=== PATIENT | male | born 1995 | race Caucasian/White ===

== ENCOUNTER 2025-01-10 15:36 | Inpatient (IN) | payer MEDICAID, SELFPAY ==
[2025-01-10] VITALS (9 sets, daily range): BP systolic 116–129; BP diastolic 67–92; PULSE 102–120; RESP 15–20; TEMP 36.6–36.7; O2SAT 96–99; BMI 27.2
--- NOTE | 2025-01-10 16:46 | PD.EDRME ---
Rapid Medical Screening Exam RME Arrival date/time: 01/10/25 15:36 29-year-old male type I diabetic with history of DKA presents to the emergency department today for complaints of nausea vomiting abdominal pain Chief Complaint: Nausea/Vomiting/Diarrhea Vital signs: Vital Signs Temperature 98.0 F 01/10/25 15:45 Pulse Rate 113 H 01/10/25 15:45 Respiratory Rate 18 01/10/25 15:45 Blood Pressure 124/80 01/10/25 15:45 Pulse Oximetry (%) 97 01/10/25 15:45 Oxygen Delivery Method Room Air 01/10/25 15:45
[2025-01-10 17:01] LABS: Basophils # (Auto) 0.1 Thou/mm3 (0.0-0.2); Basophils % (Auto) 0 % (0-2.5); Eosinophils # (Auto) 0.1 Thou/mm3 (0.0-0.5); Eosinophils % (Auto) 0 % (0-10); Hematocrit 46.2 % (41.0-53.0); Hemoglobin 16.1 g/dL (13.5-16.0); Immature Granulocytes % (Auto) 1 % (0-0); Immature Granulocytes Auto 0.12 Thou/mm3 (0.00-0.00); Lymphocytes # (Auto) 1.8 Thou/mm3 (1.0-4.8); Lymphocytes % (Auto) 9 % (10-50); Mean Corpuscular HGB Conc 34.8 g/dl (31.0-37.0); Mean Corpuscular Hemoglobin 31.4 pg (25.0-35.0); Mean Corpuscular Volume 90 fL (80-100); Monocytes # (Auto) 1.4 Thou/mm3 (0.0-0.8); Monocytes % (Auto) 7 % (0-12); Neutrophils # (Auto) 16.8 Thou/mm3 (1.8-7.7); Neutrophils % (Auto) 83 % (37-80); Nucleated Red Blood Cell % 0 /100 WBC (0); Platelet Count 330 Thou/mm3 (140-440); RDW Standard Deviation 41.7 fL (35.1-43.9); Red Blood Count 5.12 Miln/mm3 (4.50-5.90); White Blood Count 20.1 Thou/mm3 (3.8-10.6)
[2025-01-10 17:09] LABS: Beta Hydroxybutyrate 5.2 mmol/L (<0.6)
[2025-01-10] MEDS: ONDANSETRON INJ 2 MG/ML INJ 2 ML 4 MG IVP (17:13)
[2025-01-10] MEDS: METOCLOPRAMIDE INJ 5 MG/ML VIAL 2 ML 10 MG IM (17:14)
[2025-01-10 17:18] LABS: Glucose Estimated Average 298 mg/dL (80-131)
[2025-01-10 17:35] LABS: Alanine Aminotransferase < 7 U/L (10-49); Albumin, Serum 5.1 gm/dL (3.5-5.0); Alkaline Phosphatase 73 U/L (46-116); Anion Gap 26 (7-16); Aspartate Amino Transferase 12 U/L (0-34); BUN/Creatinine Ratio 9 Ratio (12-20); Bilirubin,Total 0.8 mg/dL (0.3-1.2); Blood Urea Nitrogen 13 mg/dL (9-23); Chloride 100 mMol/L (98-107); Creatinine (Component) 1.4 mg/dL (0.6-1.3); Estimated Creatinine Clearance 81.8 mL/min (>60); Globulin 2.6 gm/dL (2.3-3.5); Lipase 24 U/L (12-53); Osmolality,Calculated 292 (275-295); Potassium 4.5 mMol/L (3.4-5.1); Sodium 136 mMol/L (136-145); Total Protein 7.7 gm/dL (5.7-8.2); eGFR > 60 See Note
[2025-01-10 17:37] LABS: Carbon Dioxide < 10.0 mMol/L (20.0-31.0); Glucose 459 mg/dL (74-106)
[2025-01-10] MEDS: SODIUM CHLORIDE 0.9% 1000 ML 1,000 ML 999 ML IV ×2 (17:38→18:30)
[2025-01-10 17:42] LABS: Base Excess, Venous -19 (-3-3); O2 Saturation, Venous 98 % (96-97); PCO2, Venous 17 mmHg (36-56); PO2, Venous 102 mmHg (15-58)
--- NOTE | 2025-01-10 17:54 | XR_ITS ---
Examination: AP chest single view Technique one AP portable semiupright chest single view Date and time: January 10, 2025 at 1803 hours INDICATIONS: Nausea vomiting today. FINDINGS: Normal heart size. No aspiration pneumonia. Osseous structures are intact. IMPRESSION: No aspiration pneumonia
--- NOTE | 2025-01-10 18:00 | EDNOTE_ITS ---
Nausea/Vomit./Diarrhea-RME/HPI General Chief complaint: Nausea/Vomiting/Diarrhea Stated complaint: NAUSEA VOMITING Time Seen by Provider: 01/10/25 17:40 Arrival date/time: 01/10/25 15:36 RME / HPI RME / HPI Narrative: 29-year-old male patient with type 1 diabetes mellitus, who was brought in by EMS for evaluation regarding nausea and vomiting. Patient woke up this morning with nausea and vomiting, severity moderate associated with generalized body weakness. Patient also complaining of abdominal cramping. Patient denies any abdominal pain. Patient denies any fever. Patient told me that sometimes he forgets to take his insulin. The last dose of insulin was 2 days ago. Not yesterday and not today. Patient denies any fever. Denies any diarrhea or constipation. Related Data Home Medications ?Medication ?Instructions ?Recorded ?Confirmed insulin lispro 100 unit/mL See Protocol subcut ACHS 01/10/25 subcutaneous half-unit pen (Humalog Adán KwikPen (U-100)) Allergies Allergy/AdvReac Type Severity Reaction Status Date / Time No Known Allergies Allergy Verified 07/16/22 13:53 Review of Systems Review of Systems Narrative Review of Systems: Review of system reviewed and within normal limits except mentioned in HPI ED Exam Narrative Physical exam: VITAL SIGNS: Reviewed. GENERAL APPEARANCE: Alert and interactive, follows commands, no acute distress, generalized body weakness HEAD AND FACE: Non-traumatic. ENT: PERRL, pink conjunctivitis, eyelid no trauma, Mucous membrane dry NECK: Supple, nontender, no nuchal rigidity. CHEST: No tenderness, no crepitus, no paradoxical movement, no retractions. LUNGS: Clear, well ventilated, symmetric, no rales, no wheezing, no ronchi, no stridor, good breath sounds bilaterally. HEART: Regular rate, regular rhythm, no murmur, no gallops. ABDOMEN: Soft, positive bowel sounds, nondistended, no guarding, nontender, no rebound, no masses, RECTAL: Deferred. GENITAL: Deferred. NEUROLOGICAL: Gross motor function intact sensory function intact, Appropriate for age. MUSCULOSKELETAL: low back nontender, full range of motion. EXTREMITIES: Nontender, full range of motion. SKIN: Color pink, dry, no rash, no lacerations, no abrasions, no contusions. LYMPHATICS: Deferred. Course Quality Measures none Orders Category Date Time Status Bedside Blood Glucose Q1H Care 01/10/25 17:54 Active Computer Customer Support Specialist Q4H Care 01/10/25 17:54 Active DKA Protocol QSHIFT Care 01/10/25 17:54 Active Insert IV NOW Care 01/10/25 16:44 Active Intake and Output Q1H Care 01/10/25 18:00 Ordered Intake and Output Q1H Care 01/10/25 19:00 Ordered Intake and Output Q1H Care 01/10/25 20:00 Ordered Intake and Output Q1H Care 01/10/25 21:00 Ordered Intake and Output Q1H Care 01/10/25 22:00 Ordered Intake and Output Q1H Care 01/10/25 23:00 Ordered Notify provider NEEDED Care 01/10/25 17:54 Active Referral Registered Dietitian Routine Cons 01/10/25 17:54 Active XR chest 1V portable Stat Exams 01/10/25 17:54 Completed A1C [Glycohemoglobin w (eAG)] Stat Lab 01/10/25 16:51 Completed Alcohol, Urine Stat Lab 01/10/25 16:44 Ordered Beta Hydroxybutyrate Stat Lab 01/10/25 16:51 Completed Blood Culture (Lab) Routine Lab 01/10/25 16:47 Received CBC Stat Lab 01/10/25 16:51 Completed Comprehensive Metabolic Panel Stat Lab 01/10/25 16:51 Completed Drug Screen,Urine Stat Lab 01/10/25 16:44 Ordered Lipase Stat Lab 01/10/25 16:51 Completed Magnesium Q4H Lab 01/10/25 22:00 Ordered Magnesium Q4H Lab 01/11/25 02:00 Ordered Magnesium Q4H Lab 01/11/25 06:00 Ordered Magnesium Q4H Lab 01/11/25 10:00 Ordered Magnesium Q4H Lab 01/11/25 14:00 Ordered Magnesium Q4H Lab 01/11/25 18:00 Ordered Magnesium Q4H Lab 01/11/25 22:00 Ordered Magnesium Q4H Lab 01/12/25 02:00 Ordered Magnesium Q4H Lab 01/12/25 06:00 Ordered Magnesium Q4H Lab 01/12/25 10:00 Ordered Magnesium Q4H Lab 01/12/25 14:00 Ordered Magnesium Q4H Lab 01/12/25 18:00 Ordered Renal Function Panel Q4H Lab 01/10/25 22:00 Ordered Renal Function Panel Q4 Lab 01/11/25 02:00 Ordered Renal Function Panel Q4 Lab 01/11/25 06:00 Ordered Renal Function Panel Q4 Lab 01/11/25 10:00 Ordered Renal Function Panel Q4 Lab 01/11/25 14:00 Ordered Renal Function Panel Q4 Lab 01/11/25 18:00 Ordered Renal Function Panel Q4 Lab 01/11/25 22:00 Ordered Renal Function Panel Q4 Lab 01/12/25 02:00 Ordered Renal Function Panel Q4 Lab 01/12/25 06:00 Ordered Renal Function Panel Q4 Lab 01/12/25 10:00 Ordered Renal Function Panel Q4 Lab 01/12/25 14:00 Ordered Renal Function Panel Q4 Lab 01/12/25 18:00 Ordered UA, C/S IF [Urinalysis, C/S if Indicated] Stat Lab 01/10/25 16:44 Ordered VBG [Venous Blood Gas] Stat Lab 01/10/25 16:51 Completed Dextrose 5%-Lactated Ringers [D5-Lr] 1,000 ml Med 01/10/25 17:52 Active Pot Chl Additive [KCl Additive] 40 meq IV 250 mls/hr Dextrose 5%-Lactated Ringers [D5-Lr] 1,000 ml Med 01/10/25 17:52 Active IV 250 mls/hr Dextrose 50% Syr [D50w Syringe Abboject] Med 01/10/25 17:52 Active 25 ml IV PRNMRX1 PRN Insulin Reg 100 Units/100 ml [Myxredlin] Med 01/10/25 17:52 Active 100 unit in 100 ml IV 0.1 unit/kg/hr KCL 20 mEq/L in D5-LR Med 01/10/25 17:52 Active 20 meq in 1,000 ml IV 250 mls/hr Magnesium Sulfate 2 GM Ivpb [Magnesium Sulfate Ivpb] Med 01/10/25 17:52 Active 2 gm in 50 ml IV 25 mls/hr Metoclopramide Inj [Reglan Inj] Med 01/10/25 16:53 Discontinued 10 mg IM X1 ONE Ondansetron Inj [Zofran Inj] Med 01/10/25 16:44 Discontinued 4 mg IVP X1 ONE POT PHOS 15 mMol in NS 250 ML [Pot Phos 15 mMol in NS Med 01/10/25 17:52 Active 250 ml] 15 mmol in 250 ml IV PRN POTASSIUM CHL 10 mEq IVPB [Kcl Ivpb] [facility] 01/10/25 17:52 Active 10 meq in 100 ml IV 100 mls/hr POTASSIUM CHL 10 mEq IVPB [Kcl Ivpb] Med 01/10/25 17:52 Active 10 meq in 100 ml IV PRN Pre-Mixed [Pre-mixed Bag] 1 bag [facility] 01/10/25 17:52 Discontinued Insulin Reg 100 Units/100 ml [Myxredlin] 100 unit IV 0.1 unit/kg/hr Ringers Lactated 1000 ml [Lactated Ringers] 1,000 ml Med 01/10/25 17:52 Active Pot Chl Additive [KCl Additive] 20 meq IV 250 mls/hr Ringers Lactated 1000 ml [Lactated Ringers] 1,000 ml [facility] 01/10/25 17:52 Active Pot Chl Additive [KCl Additive] 40 meq IV 250 mls/hr Ringers Lactated 1000 ml [Lactated Ringers] 1,000 ml [facility] 01/10/25 17:52 Active IV 250 mls/hr Sodium Bicarb 8.4% SYR Med 01/10/25 17:52 Active 50 ml IV Q4HR PRN Sodium Chloride 0.9% 1000 ml [Ns] 1,000 ml [facility] 01/10/25 16:44 Discontinued IV 999 mls/hr Sodium Chloride 0.9% 1000 ml [Ns] 1,000 ml Med 01/10/25 17:50 Discontinued IV 999 mls/hr Sodium Chloride 0.9% 250 ml [Ns] 250 ml [facility] 01/10/25 17:52 Active Sod Phos Additive [NaPhos Additive] 15 mmol IV 62.5 mls/hr Vital Signs Vital signs: Vital Signs Temperature 98.0 F 01/10/25 15:45 Pulse Rate 113 H 01/10/25 15:45 Respiratory Rate 18 01/10/25 15:45 Blood Pressure 124/80 01/10/25 15:45 Pulse Oximetry (%) 97 01/10/25 15:45 Oxygen Delivery Method Room Air 01/10/25 15:45 Nausea/Vomiting/Diarrhea MDM Narrative MDM Narrative:: Patient told me that sometimes he forgets to take his insulin. The last dose of insulin was 2 days ago. Not yesterday and not today. Patient denies any fever. Denies any diarrhea or constipation. Patient's WBC count was noted to be 20.1. pH was noted to be 7.2, carbon dioxide of less than 10 anion gap of 26 creatinine 1.4 blood sugar 459, sodium 136 potassium 4.5. Beta hydroxy was noted to be 5.2 Patient received total 2 L IV fluids. And started on insulin drip Spoke with hat brim curler, Dr. Allison, who admitted the patient. Patient data External records reviewed:: None Clinical information provided by:: patient Social determinants that could affect healthcare access:: none Patient has the following chronic illnesses:: Type 1 diabetes mellitus How is presenting disease/condition affected by chronic disease/condition?: exacerbated by Evaluation data The following diagnostics were reviewed and interpreted by me:: lab results and radiology exam(s) Lab and/or radiology exams considered but not ordered:: None Interpretation Summary: See results MDM Medications / Prescriptions Medications / Prescriptions considered but not ordered:: None Medication administrations:: Medication Administration History Acetaminophen (Acetaminophen 325 Mg Tablet) 1,000 mg PO Q6H PRN PRN Reason: Fever >99.9 Stop: 02/09/25 18:06 Dextrose (Dextrose 50%-Water Inj 50 Ml Syringe) 25 ml IV PRNMRX1 PRN PRN Reason: Blood Sugar - Low Enoxaparin Sodium (Enoxaparin Sod Inj 40 Mg/0.4 Ml Syringe) 40 mg SC QDAY JADA Stop: 01/25/25 08:59 Glucagon (Glucagon Inj 1 Mg Vial) 1 mg IM Q15MIN PRN PRN Reason: BG <70, and no IV access Insulin Human Regular (Myxredlin) 100 unit in 100 mls @ 8.618 mls/hr IV .[id number] PRN; Protocol PRN Reason: PER PROTOCOL Stop: 02/09/25 17:51 Last Titration: 01/10/25 20:00 Dose: 0.1 unit/kg/hr, 8.618 mls/hr Documented By: AD Co-signed By: MACHO Admin: 01/10/25 18:30 Dose: 0.1 unit/kg/hr, 8.618 mls/hr Documented By: TM Co-signed By: ED Potassium Chloride (Kcl Ivpb) 10 meq in 100 mls @ 100 mls/hr IV .Q1H PRN PRN Reason: IF POTASSIUM LESS THAN 3.3 Stop: 02/09/25 17:51 Magnesium Sulfate (Magnesium Sulfate Ivpb) 2 gm in 50 mls @ 25 mls/hr IV .Q2H PRN PRN Reason: PER DKA PROTOCOL Stop: 02/09/25 17:51 Dextrose/Lactated Ringer's (D5-Lr) 1,000 mls @ 250 mls/hr IV .Q4H PRN PRN Reason: PER PROTOCOL Stop: 02/09/25 17:51 Lactated Ringer's (Lactated Ringers) 1,000 mls @ 250 mls/hr IV .Q4H PRN PRN Reason: PER PROTOCOL Stop: 01/11/25 17:51 Potassium Chloride 20 meq/ (Lactated Ringer's) 1,010 mls @ 250 mls/hr IV .Q4H3M PRN PRN Reason: K LEVEL 3.3 TO 5.3mM/L Stop: 02/09/25 17:51 Last Admin: 01/10/25 19:06 Dose: 250 mls/hr Documented By: TM Potassium Chloride 40 meq/ (Lactated Ringer's) 1,020 mls @ 250 mls/hr IV .Q4H5M PRN PRN Reason: K LEVEL < 3.3 mM/L Stop: 02/09/25 17:51 Potassium Chloride 40 meq/ (Dextrose/Lactated Ringer's) 1,020 mls @ 250 mls/hr IV .Q4H5M PRN PRN Reason: K LEVEL < 3.3mM/L Stop: 02/09/25 17:51 Potassium Cl/Dextrose/Lact Ringer's (Kcl 20 Meq/L In D5-Lr) 20 meq in 1,000 mls @ 250 mls/hr IV .Q4H PRN PRN Reason: K LEVEL 3.3 TO 5.3 mM/L Stop: 02/09/25 17:51 Potassium Chloride (Kcl Ivpb) 10 meq in 100 mls @ 50 mls/hr IV PRN PRN PRN Reason: K LEVEL 3.3 to 5.3 & BG > 200 Stop: 02/09/25 17:51 Potassium Phosphate (Pot Phos 15 Mmol In Ns 250 Ml) 15 mmol in 250 mls @ 62.5 mls/hr IV PRN PRN PRN Reason: Phosphate <= 1mg/dL Stop: 02/09/25 17:51 Sodium Phosphate 15 mmol/ (Sodium Chloride) 255 mls @ 62.5 mls/hr IV .Q4H5M PRN PRN Reason: Phosphate <= 1mg/dL and K> than 5.3 Stop: 02/09/25 17:51 Ondansetron HCl (Ondansetron Inj 2 Mg/Ml Inj 2 Ml) 4 mg IVP Q6H PRN; Protocol PRN Reason: NAUSEA OR VOMITING Stop: 02/09/25 18:06 Pantoprazole Sodium (Pantoprazole Inj 40 Mg Vial) 40 mg IVP QDAY JADA Stop: 02/10/25 08:59 Sodium Bicarbonate (Sodium Bicarb Inj 8.4% Syr 50 Ml Syringe) 50 ml IV Q4HR PRN PRN Reason: For ph <= to 7.0 Stop: 02/09/25 17:51 Discontinued Medications Acetaminophen (Acetaminophen 325 Mg Tablet) 1,000 mg PO Q6H PRN PRN Reason: Fever >99.9 Stop: 02/09/25 18:06 Sodium Chloride (Ns) 1,000 mls @ 999 mls/hr IV .Q1H1M ONE Stop: 01/10/25 17:44 Last Admin: 01/10/25 17:38 Dose: 999 mls/hr Documented By: KATHLEEN Sodium Chloride (Ns) 1,000 mls @ 999 mls/hr IV .Q1H1M ONE Stop: 01/10/25 18:50 Last Admin: 01/10/25 18:30 Dose: 999 mls/hr Documented By: MONICA Insulin Human Regular 100 unit (/ IV Miscellaneous Supplies) 100 mls @ 8.618 mls/hr IV .[id number] PRN; Protocol PRN Reason: PER PROTOCOL Stop: 02/09/25 17:51 Metoclopramide HCl (Metoclopramide Inj 5 Mg/Ml Vial 2 Ml) 10 mg IM X1 ONE; Protocol Stop: 01/10/25 16:54 Last Admin: 01/10/25 17:14 Dose: 10 mg Documented By: KATHLEEN Ondansetron HCl (Ondansetron Inj 2 Mg/Ml Inj 2 Ml) 4 mg IVP X1 ONE; Protocol Stop: 01/10/25 16:45 Last Admin: 01/10/25 17:13 Dose: 4 mg Documented By: KATHLEEN IV fluids for hydration insulin drip, Zofran and Reglan Consultations Consultation(s) initiated? (list below): No Diagnosis Nausea Differential Diagnosis: food poisoning, gastroenteritis and dehydration Most likely diagnosis given after review of the tests above:: Diabetic ketoacidosis, Admission Indicated Admission indicated?: indicated Admission Request Was there a request for admission?: Yes Admission Attestation Admission request attestation: Discussed case with [Dr. Allison] from Hospitalist service regarding admission. Discussed patients ED course, exam findings, labs, and radiology results. The Hospitalist [agrees] to accept the patient for admission. Disposition Plan Disposition Plan: Admit Critical Care Time Critical Care Time Critical Care Time: Yes Total Critical Care Time (min.): 45 Attestation: Critical Care Time The very real possibility of a deterioration of this patient's condition required the highest level of my preparedness for sudden, emergent intervention for the following systems: Cardiac and Metabolic. I provided critical care services, which included medication orders, frequent re-evaluations of the patient's condition and response to treatment, ordering and reviewing test resu lts, and discussing the case with various consultants including: nursing staff, hospitalist, and more. The critical care time associated with the care of this patient was 45 minutes. Discharge Plan Plan Patient Disposition: Admit Acute Care w/in Hospital Problem List Clinical Impression: Diabetic ketoacidosis
--- NOTE | 2025-01-10 18:07 | EKG_ITS ---
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
[2025-01-10] MEDS: INSULIN REG 100 UNITS/100 ML 100 UNIT/100 ML BAG 8.618 UNIT IV (18:30)
--- NOTE | 2025-01-10 18:34 | ESHP_ITS ---
Documentation for date of: 01/10/25 HPI History of Present Illness History of present illness: Chief complaint: Nausea, vomiting and abdominal pain x 10 hours HPI: Mr Hernandez is a 29 year old male with PMH of Type 1 IDDM, who was admitted for acute onset nausea, vomiting and abdominal pain that started this morning around 9 am. Patient also had 2-3 episodes of diarrhea. HE has experienced similar symptoms in the past when he was hospitalized 1 year ago in 2023. Patient states that he missed a few of his insulin doses about 24-48 hours ago, states that he was feeling lazy. He states that he is otherwise compliant with his insulin and takes everything as prescribed. He denies any fever, chills, or other systemic signs or symptoms. In the ED, vitals showed borderline tachycardia HR 102-106 bpm, BP 120/80 and saturating 98% on room air. Fingerstick blood glucose noted to be > 400. Initial laboratory workup remarkable for leukocytosis WBC 20, hemoglobin 16.1 due to hemoconcentration, bicarb <10, KEILY Cr 1.4 (baseline 0.8) and BHB 5.2. A1c noted to be 12%. VBG showed pH 7.2, CO2 17. EKG showed sinus tachycardia, HR 106 bpm and chest x-ray unremarkable. Patient was admitted to the ICU for diabetic ketoacidosis in the setting of medication noncompliance. Past medical history: Tyep 1 DM, diagnosed at age 23 Medication list: Long acting insulin - glargine ? Short acting Lispro Sliding scale Allergies: NKFDA Social history: Occupational?History:?Unemployed Tobacco?Use:?Denies ETOH?Use:?Socially Drug?Note:?Marijuana Social?History?Note:?Lives?at home with mother Family history: Denies sudden cardiac or strokes in the family, Denies cancers. Review of Systems Review of Systems Narrative Review of Systems: GENERAL: Denies fevers/chills, some diaphoresis. HEENT: Denies headache or visual/hearing changes. Denies nasal discharge. NEURO: Denies unusual weakness or difficulty speaking. CARDIO: Denies chest pain, palpitations. PULM: Denies SOB, cough, wheezing. GI: Diffuse abdominal pain, N/V, 2 episodes of diarrhea. URO: Denies burning/itching/pain/urinary changes. MSK/EXT/SKIN: Denies skeletal/muscle pain, changes in upper or lower extremities, itchiness, superficial skin chnages. PSYCH: Cooperative, pleasant mood & affect. The rest of the review of systems is otherwise negative. Exam Vital Signs Temp Pulse Resp BP Pulse Ox O2 Del Method 98.0 F 113 H 18 124/80 97 Room Air 01/10/25 15:45 01/10/25 15:45 01/10/25 15:45 01/10/25 15:45 01/10/25 15:45 01/10/25 15:45 Narrative Exam Constitutional Alert, oriented x3. Nauseous HEENT Vision grossly intact. Patent nares. Trachea midline. Respiratory Chest normal on inspection and clear to auscultation bilaterally. Cardiovascular S1 and S2 audible, RRR. No murmurs or carotid bruit. No gross JVD. Abdominal Soft and BS + ; mildly tender to palpation diffusely. Genitourinary No bladder tenderness, no flank pain. Normal to palpation. Musculoskeletal Extremities tone within normal limits. No LE edema. Neurological CN II - XII grossly intact. Extremity motor and sensation grossly intact. Skin Warm, dry and intact. No apparent lesions. Psychiatric Patient has a good affect, is cooperative. Results: Labs 01/11/25 06:00 01/11/25 06:00 Labs: Short CBC 01/10/25 Range/Units 16:51 WBC 20.1 H (3.8-10.6) Thou/mm3 Hgb 16.1 H (13.5-16.0) g/dL Hct 46.2 (41.0-53.0) % Plt Count 330 (140-440) Thou/mm3 BMP 01/10/25 16:51 Sodium 136 Potassium 4.5 Chloride 100 Carbon Dioxide < 10.0 L* BUN 13 Creatinine 1.4 H Glucose 459 H* Calcium 10.0 Liver Function 01/10/25 Range/Units 16:51 Total Bilirubin 0.8 (0.3-1.2) mg/dL AST 12 (0-34) U/L ALT < 7 L (10-49) U/L Alkaline Phosphatase 73 (46-116) U/L Albumin 5.1 H (3.5-5.0) gm/dL ABG Interpretation ABG results: 01/10/25 16:51 VBG pH 7.20 L VBG pCO2 17 L VBG pO2 102 H VBG Base Excess -19 L Quality Measures Quality Measures VTE prophylaxis Medications Home Medications and Allergies Home Medications ?Medication ?Instructions ?Recorded ?Confirmed ?Type insulin lispro 100 unit/mL See Protocol subcut ACHS 01/10/25 History subcutaneous half-unit pen (Humalog Adán Natan (U-100)) Allergies Allergy/AdvReac Type Severity Reaction Status Date / Time No Known Allergies Allergy Verified 07/16/22 13:53 Visit Medications Acetaminophen (Acetaminophen 325 Mg Tablet) 1,000 mg PO Q6H PRN PRN Reason: Fever >99.9 Stop: 02/09/25 18:06 Dextrose (Dextrose 50%-Water Inj 50 Ml Syringe) 25 ml IV [id number] PRN PRN Reason: Blood Sugar - Low Enoxaparin Sodium (Enoxaparin Sod Inj 40 Mg/0.4 Ml Syringe) 40 mg SC QDAY JADA Stop: 01/25/25 08:59 Glucagon (Glucagon Inj 1 Mg Vial) 1 mg IM Q15MIN PRN PRN Reason: BG <70, and no IV access Sodium Chloride (Ns) 1,000 mls @ 999 mls/hr IV .Q1H1M ONE Stop: 01/10/25 18:50 Insulin Human Regular (Myxredlin) 100 unit in 100 mls @ 8.618 mls/hr IV .[id number] PRN; Protocol PRN Reason: PER PROTOCOL Stop: 02/09/25 17:51 Potassium Chloride (Kcl Ivpb) 10 meq in 100 mls @ 100 mls/hr IV .Q1H PRN PRN Reason: IF POTASSIUM LESS THAN 3.3 Stop: 02/09/25 17:51 Magnesium Sulfate (Magnesium Sulfate Ivpb) 2 gm in 50 mls @ 25 mls/hr IV .Q2H PRN PRN Reason: PER DKA PROTOCOL Stop: 02/09/25 17:51 Dextrose/Lactated Ringer's (D5-Lr) 1,000 mls @ 250 mls/hr IV .Q4H PRN PRN Reason: PER PROTOCOL Stop: 02/09/25 17:51 Lactated Ringer's (Lactated Ringers) 1,000 mls @ 250 mls/hr IV .Q4H PRN PRN Reason: PER PROTOCOL Stop: 01/11/25 17:51 Potassium Chloride 20 meq/ (Lactated Ringer's) 1,010 mls @ 250 mls/hr IV .Q4H3M PRN PRN Reason: K LEVEL 3.3 TO 5.3mM/L Stop: 02/09/25 17:51 Potassium Chloride 40 meq/ (Lactated Ringer's) 1,020 mls @ 250 mls/hr IV .Q4H5M PRN PRN Reason: K LEVEL < 3.3 mM/L Stop: 02/09/25 17:51 Potassium Chloride 40 meq/ (Dextrose/Lactated Ringer's) 1,020 mls @ 250 mls/hr IV .Q4H5M PRN PRN Reason: K LEVEL < 3.3mM/L Stop: 02/09/25 17:51 Potassium Cl/Dextrose/Lact Ringer's (Kcl 20 Meq/L In D5-Lr) 20 meq in 1,000 mls @ 250 mls/hr IV .Q4H PRN PRN Reason: K LEVEL 3.3 TO 5.3 mM/L Stop: 02/09/25 17:51 Potassium Chloride (Kcl Ivpb) 10 meq in 100 mls @ 50 mls/hr IV PRN PRN PRN Reason: K LEVEL 3.3 to 5.3 & BG > 200 Stop: 02/09/25 17:51 Potassium Phosphate (Pot Phos 15 Mmol In Ns 250 Ml) 15 mmol in 250 mls @ 62.5 mls/hr IV PRN PRN PRN Reason: Phosphate <= 1mg/dL Stop: 02/09/25 17:51 Sodium Phosphate 15 mmol/ (Sodium Chloride) 255 mls @ 62.5 mls/hr IV .Q4H5M PRN PRN Reason: Phosphate <= 1mg/dL and K> than 5.3 Stop: 02/09/25 17:51 Ondansetron HCl (Ondansetron Inj 2 Mg/Ml Inj 2 Ml) 4 mg IVP Q6H PRN; Protocol PRN Reason: NAUSEA OR VOMITING Stop: 02/09/25 18:06 Pantoprazole Sodium (Pantoprazole Inj 40 Mg Vial) 40 mg IVP QDAY JADA Stop: 02/10/25 08:59 Sodium Bicarbonate (Sodium Bicarb Inj 8.4% Syr 50 Ml Syringe) 50 ml IV Q4HR PRN PRN Reason: For ph <= to 7.0 Stop: 02/09/25 17:51 Discontinued Medications Sodium Chloride (Ns) 1,000 mls @ 999 mls/hr IV .Q1H1M ONE Stop: 01/10/25 17:44 Last Admin: 01/10/25 17:38 Dose: 999 mls/hr Insulin Human Regular 100 unit (/ IV Miscellaneous Supplies) 100 mls @ 8.618 mls/hr IV .[id number] PRN; Protocol PRN Reason: PER PROTOCOL Stop: 02/09/25 17:51 Metoclopramide HCl (Metoclopramide Inj 5 Mg/Ml Vial 2 Ml) 10 mg IM X1 ONE; Protocol Stop: 01/10/25 16:54 Last Admin: 01/10/25 17:14 Dose: 10 mg Ondansetron HCl (Ondansetron Inj 2 Mg/Ml Inj 2 Ml) 4 mg IVP X1 ONE; Protocol Stop: 01/10/25 16:45 Last Admin: 01/10/25 17:13 Dose: 4 mg Assessment & Plan Plan Mr Hernandez is a 29 year old male with PMH of Type 1 IDDM, who was admitted for acute onset nausea, vomiting and abdominal pain that started this morning around 9 am. Patient also had 2-3 episodes of diarrhea. HE has experienced similar symptoms in the past when he was hospitalized 1 year ago in 2023. Patient states that he missed a few of his insulin doses about 24-48 hours ago, states that he was feeling lazy. He states that he is otherwise compliant with his insulin and takes everything as prescribed. He denies any fever, chills, or other systemic signs or symptoms. In the ED, vitals showed borderline tachycardia HR 102-106 bpm, BP 120/80 and saturating 98% on room air. Fingerstick blood glucose noted to be > 400. Initial laboratory workup remarkable for leukocytosis WBC 20, hemoglobin 16.1 due to hemoconcentration, bicarb <10, KEILY Cr 1.4 (baseline 0.8) and BHB 5.2. A1c noted to be 12%. VBG showed pH 7.2, CO2 17. EKG showed sinus tachycardia, HR 106 bpm and chest x-ray unremarkable. Patient was admitted to the ICU for diabetic ketoacidosis in the setting of medication noncompliance. ENDO Type 1 dependent diabetes mellitus Dx: - PMH of Type 1 IDDM since age 23 - Home emds: Long acting insulin - glargine ? +Short acting Lispro +Sliding scale - VBG : pH 7.2, CO2 17 and Bicarb <10 - BHB 5.2 and AG 26 - Hb A1c noted to be 12% - K 4.5 at the time of commencing insulin gtt Rx: - DKA protocol insulin gtt, goal AG <14 - Potassium supplementation in IVF - Received 2L IVF bolus in ED. On maintenance IVF : LR @ 250 cc/h - Renal panel q4H for electrolytes and KEILY - NPO for now, will start diet in the am - Bedside fingerstick glucose checks qhourly - Hypoglycemia protocol in place - Will transition to SC insulin once DKA resolved NEURO No active problems. CVS Sinus Tachycardia Dx: - In the ED, vitals showed borderline tachycardia HR 102-106 bpm, BP 120/80 - Likely in the setting of ketoacidosis Rx: - Close telemetry monitoring on ICU. Patient denies any chest pain or discomfort at this time. - Keep K >4 and magnesium >2 at all times - Anticipate resolution of tachycardia with correction of DKA by tomorrow morning PULM No active problems. GI/Hep Abdominal pain Nausea/Vomiting Dx: - In the setting of DKA, and also severe nausea and vomiting causing worsening abdominal pain - Unable to tolerate any p.o. intake since this morning Rx: - Patient to remain n.p.o. for gut rest until DKA corrected - Anticipate resolution by tomorrow morning, will start diet once tolerated - As needed Zofran every 6 hours RENAL KEILY Dx: - KEILY Cr 1.4 (baseline 0.8) - Likely in the setting of dehydration, DKA Rx: - On DKA protocol - On maintenance IVF : LR @ 250 cc/h - Renally dose medications like anticoagulants and antibiotics - Avoid nephrotoxic agents - Renal panel q4H HEME/ONC Leukocytosis Hemoconcentration Dx: - WBC 20.1 - hemoglobin 16.1 - Likely in the setting of dehydration from DKA Rx: Borderline increase in Hb due to hemconcentration and WBC elevated due to DKA Anticipate correction with hydration and DKA management with insulin ID No active problems. ICU Health maintenance: Dispo: Admit to ICU for diabetic ketoacidosis Diet: NPO DVT ppx: Enoxaparin 40mg SC daily GI ppx: Protonix 40mg qD IV lines: 2 pIV Central line: No Arterial line: No Code status: FULL CODE Plan of care discussed with liquified natural gas technician Dr Allison, Ankit Phillip MD PGY 2 This document was compiled using speech recognition software. Grammatical errors can be an occasional consequence of this system due to software limitations. Attending Provider Attestation/Addendum Patient not seen on date of service. I was contacted by the above resident, Ankit Phillip MD, to discuss I agree with the above plan of care as documented. Patient with DKA due to noncompliance, no evidence of infection or ischemia. Patient will be admitted to ICU for IV insulin management with close monitoring of serial labs for resolution of acidosis and resolution of ketosis. I remain available overnight for any needs or concerns should they arise. I will see the patient tomorrow during rounds formally with the resident staff.
--- NOTE | 2025-01-10 18:51 | PC.NURSE ---
SPOKE W/PHARMACY TO REQUEST [facility], PHARMACY TO BRING TO ED
[2025-01-10] MEDS: POT CHL ADDITIVE 20 MEQ in RINGERS LACTATED 1000 ML 1,000 ML 250 MEQ IV (19:06)
[2025-01-10 20:30] LABS: Base Excess -19 (-3-3); HCO3 8 mEq/L (20-26); Inspired Oxygen, FIO2 21 %; O2 Saturation 98 % (91-98); PCO2 23 mmHg (32.0-48.0); PO2 119 mmHg (83-108)
[2025-01-10 20:32] LABS: Allen Test Performed/OK; Puncture Site Right Radial; pH, Arterial 7.14 (7.35-7.45)
[2025-01-10] MEDS: KCL 20 mEq/L in D5-LR 20 MEQ/1,000 ML BAG 250 MEQ IV (22:13)
[2025-01-10 22:46] LABS: Collection Type, Urine Clean Catch; RBC,Urine 0 /hpf (0-3); WBC,Urine 0 /hpf (0-5)
[2025-01-10 23:01] LABS: Albumin, Serum 4.6 gm/dL (3.5-5.0); BUN/Creatinine Ratio 8 Ratio (12-20); Blood Urea Nitrogen 10 mg/dL (9-23); Calcium 9.1 mg/dL (8.3-10.6); Calcium (Corrected) 9.1 mg/dL (8.5-10.1); Chloride 111 mMol/L (98-107); Creatinine (Component) 1.2 mg/dL (0.6-1.3); Estimated Creatinine Clearance 95.5 mL/min (>60); Glucose 180 mg/dL (74-106); Magnesium 1.6 mg/dL (1.6-2.6); Osmolality,Calculated 288 (275-295); Phosphorous 2.3 mg/dL (2.4-5.1); Potassium 4.3 mMol/L (3.4-5.1); Sodium 143 mMol/L (136-145); eGFR > 60 See Note
[2025-01-10 23:08] LABS: Anion Gap 17 (7-16); Carbon Dioxide 15.1 mMol/L (20.0-31.0)
[2025-01-10 23:13] LABS: Alcohol, Urine Negative (Negative); Amphetamine/Methamp Scrn,U Negative (Negative); Barbiturate Screen,Urine Negative (Negative); Benzodiazepines Screen,Urine Negative (Negative); Benzoylecgonine Screen, Ur Negative (Negative); Fentanyl Screen,Urine Negative (Negative); Opiate Screen,Urine Negative (Negative); THC Screen,Urine Negative (Negative)
[2025-01-10] MEDS: Magnesium Sulfate 2 GM Ivpb 2 GM/50 ML BAG IV (23:20)
[2025-01-10 23:27] LABS: Bilirubin,Urine Negative (Negative); Blood,Urine Negative (Negative); Clarity,Urine Clear (Clear/Hazy); Color,Urine Colorless (Lt Yel-Yel); Culture Indicated,Urine Not Indicated; Glucose, Urine 4+ (Negative); Hyaline Casts,Urine < 1 /hpf (0-1); Ketones,Urine 4+ (Negative); Leukocyte Esterase,Urine Negative (Negative); Nitrite,Urine Negative (Negative); Protein,Urine Negative (Neg - Trace); Specific Gravity,Urine 1.016 (1.001-1.035); Squamous Epithelial Cell,Urine < 1 /hpf (0-5); Urobilinogen,Urine Negative mg/dL (0.0-1.0)
[2025-01-11] VITALS (42 sets, daily range): BP systolic 108–129; BP diastolic 68–90; PULSE 72–104; RESP 11–26; TEMP 36.1–37.2; O2SAT 96–99; BMI 25.4
[2025-01-11] MEDS: POT CHL ADDITIVE 20 MEQ in RINGERS LACTATED 1000 ML 1,000 ML 250 MEQ IV (00:59)
[2025-01-11 02:55] LABS: Albumin, Serum 4.3 gm/dL (3.5-5.0); Anion Gap 11 (7-16); BUN/Creatinine Ratio 7 Ratio (12-20); Blood Urea Nitrogen 8 mg/dL (9-23); Calcium 8.7 mg/dL (8.3-10.6); Calcium (Corrected) 8.7 mg/dL (8.5-10.1); Carbon Dioxide 19.4 mMol/L (20.0-31.0); Chloride 113 mMol/L (98-107); Creatinine (Component) 1.1 mg/dL (0.6-1.3); Estimated Creatinine Clearance 104.2 mL/min (>60); Glucose 137 mg/dL (74-106); Magnesium 1.8 mg/dL (1.6-2.6); Osmolality,Calculated 285 (275-295); Phosphorous 2.5 mg/dL (2.4-5.1); Potassium 3.9 mMol/L (3.4-5.1); Sodium 143 mMol/L (136-145); eGFR > 60 See Note
[2025-01-11] MEDS: KCL 20 mEq/L in D5-LR 20 MEQ/1,000 ML BAG 250 MEQ IV ×2 (03:23→07:43)
[2025-01-11 07:12] LABS: Basophils % (Auto) 0 % (0-2.5); Eosinophils % (Auto) 0 % (0-10); Hematocrit 38.9 % (41.0-53.0); Hemoglobin 13.6 g/dL (13.5-16.0); Immature Granulocytes % (Auto) 0 % (0-0); Immature Granulocytes Auto 0.05 Thou/mm3 (0.00-0.00); Lymphocytes # (Auto) 1.5 Thou/mm3 (1.0-4.8); Lymphocytes % (Auto) 12 % (10-50); Mean Corpuscular Hemoglobin 31.1 pg (25.0-35.0); Mean Corpuscular Volume 89 fL (80-100); Monocytes # (Auto) 1.2 Thou/mm3 (0.0-0.8); Monocytes % (Auto) 9 % (0-12); Neutrophils # (Auto) 10.1 Thou/mm3 (1.8-7.7); Neutrophils % (Auto) 79 % (37-80); Nucleated Red Blood Cell % 0 /100 WBC (0); Platelet Count 223 Thou/mm3 (140-440); RDW Standard Deviation 41.9 fL (35.1-43.9); Red Blood Count 4.38 Miln/mm3 (4.50-5.90); White Blood Count 12.8 Thou/mm3 (3.8-10.6)
--- NOTE | 2025-01-11 07:13 | ESPR_ITS ---
Documentation for date of: 01/11/25 Subjective Subjective Interval history: Mr Hernandez is a 29 year old male with PMH of Type 1 IDDM, who was admitted for acute onset nausea, vomiting and abdominal pain that started this morning around 9 am. Patient also had 2-3 episodes of diarrhea. HE has experienced similar symptoms in the past when he was hospitalized 1 year ago in 2023. Patient states that he missed a few of his insulin doses about 24-48 hours ago, states that he was feeling lazy. He states that he is otherwise compliant with his insulin and takes everything as prescribed. He denies any fever, chills, or other systemic signs or symptoms. In the ED, vitals showed borderline tachycardia HR 102-106 bpm, BP 120/80 and saturating 98% on room air. Fingerstick blood glucose noted to be > 400. Initial laboratory workup remarkable for leukocytosis WBC 20, hemoglobin 16.1 due to hemoconcentration, bicarb <10, KEILY Cr 1.4 (baseline 0.8) and BHB 5.2. A1c noted to be 12%. VBG showed pH 7.2, CO2 17. EKG showed sinus tachycardia, HR 106 bpm and chest x-ray unremarkable. Patient was admitted to the ICU for diabetic ketoacidosis in the setting of medication noncompliance. 01/11/2025: Patient was seen and examined at bedside this AM. No acute events overnight. Patient tolerating liquid diet after 12 hours on insulin gtt. Will advance to solids once AG closed and Bicarb improved. He had adequate urine output and mentation is at baseline. Patient endorses resolution of abdominal pain, denies any N/V since admission. He appears to be at his baseline now. Aim to transition to SC insulin long acting + short acting, along with SSI. Patient to be downgraded safely to medical floors later today. Cycle Manager referral ordered, will need counseling for compliance. Hospitalist teams to take over care. Exam Vital Signs Temp Pulse Resp BP Pulse Ox O2 Del Method 98.9 F 93 19 112/72 98 Room Air 01/11/25 04:00 01/11/25 06:00 01/11/25 06:00 01/11/25 06:00 01/11/25 06:00 01/10/25 18:57 Narrative Exam Constitutional Alert, oriented x3 and comfortable HEENT Vision grossly intact. Patent nares. Trachea midline. Respiratory Chest normal on inspection and clear to auscultation bilaterally. Cardiovascular S1 and S2 audible, RRR. No murmurs or carotid bruit. No gross JVD. Abdominal Soft and BS + ; non tender to palpation in all quadrants. Genitourinary No bladder tenderness, no flank pain. Normal to palpation. Musculoskeletal Extremities tone within normal limits. No LE edema. Neurological CN II - XII grossly intact. Extremity motor and sensation grossly intact. Skin Warm, dry and intact. No apparent lesions. Psychiatric Patient has a good affect, is cooperative. Objective Labs 01/12/25 05:23 01/12/25 05:23 Labs: Laboratory Results - last 24 hr 01/10/25 01/10/25 01/10/25 16:51 20:14 22:00 WBC 20.1 H RBC 5.12 Hgb 16.1 H Hct 46.2 MCV 90 MCH 31.4 MCHC 34.8 RDW Std Deviation 41.7 Plt Count 330 Neut % (Auto) 83 H Lymph % (Auto) 9 L [place] % (Auto) 7 Eos % (Auto) 0 Baso % (Auto) 0 Neut # (Auto) 16.8 H Lymph # (Auto) 1.8 [place] # (Auto) 1.4 H Eos # (Auto) 0.1 Baso # (Auto) 0.1 Immature Gran # (Auto) 0.12 H Absolute Nucleated RBC 0.00 Immature Gran % 1 H Nucleated RBC % 0 Puncture Site Right Radial ABG pH 7.14 L* ABG pCO2 23 L ABG pO2 119 H ABG HCO3 8 L* ABG O2 Saturation 98 ABG Base Excess -19 L VBG pH 7.20 L VBG pCO2 17 L VBG pO2 102 H VBG O2 Sat (Jeovany) 98 H VBG Base Excess -19 L FiO2 21 Sodium 136 Potassium 4.5 Chloride 100 Carbon Dioxide < 10.0 L* Anion Gap 26 H BUN 13 Creatinine 1.4 H Estim Creat Clear Calc 81.8 eGFR > 60 BUN/Creatinine Ratio 9 L Glucose 459 H* Estimated Ave Glu mg/dL 298 H Hemoglobin A1c 12.0 H Calculated Osmolality 292 Calcium 10.0 Corrected Calcium 10.0 Phosphorus Magnesium Total Bilirubin 0.8 AST 12 ALT < 7 L Alkaline Phosphatase 73 Total Protein 7.7 Albumin 5.1 H Globulin 2.6 Albumin/Globulin Ratio 2.0 Lipase 24 Beta-Hydroxybutyrate/Acetoacetate 5.2 H Ur Collection Type Clean Catch Urine Color Colorless A Urine Clarity Clear Urine pH 5.0 Ur Specific [place] 1.016 Urine Protein Negative Urine Glucose (UA) 4+ A Urine Ketones 4+ A Urine Blood Negative Urine Nitrite Negative Urine Bilirubin Negative Urine Urobilinogen (Auto) Negative Ur Leukocyte Esterase Negative Urine RBC 0 Urine WBC 0 Ur Squamous Epith Cells < 1 Urine Bacteria None Hyaline Casts < 1 Ur Culture Indicated? Not Indicated Urine Opiates Screen Negative Urine Fentanyl Screen Negative Ur Barbiturates Screen Negative U Amphetamin/Meth Scrn Negative U Benzodiazepines Scrn Negative U Cocaine Metab Screen Negative U Marijuana (THC) Screen Negative Urine Alcohol Negative 01/10/25 01/11/25 22:15 02:23 WBC RBC Hgb Hct MCV MCH MCHC RDW Std Deviation Plt Count Neut % (Auto) Lymph % (Auto) [place] % (Auto) Eos % (Auto) Baso % (Auto) Neut # (Auto) Lymph # (Auto) [place] # (Auto) Eos # (Auto) Baso # (Auto) Immature Gran # (Auto) Absolute Nucleated RBC Immature Gran % Nucleated RBC % Puncture Site ABG pH ABG pCO2 ABG pO2 ABG HCO3 ABG O2 Saturation ABG Base Excess VBG pH VBG pCO2 VBG pO2 VBG O2 Sat (Jeovany) VBG Base Excess FiO2 Sodium 143 143 Potassium 4.3 3.9 Chloride 111 H 113 H Carbon Dioxide 15.1 L 19.4 L Anion Gap 17 H 11 BUN 10 8 L Creatinine 1.2 1.1 Estim Creat Clear Calc 95.5 104.2 eGFR > 60 > 60 BUN/Creatinine Ratio 8 L 7 L Glucose 180 H D [address] Glu mg/dL Hemoglobin A1c Calculated Osmolality 288 285 Calcium 9.1 8.7 Corrected Calcium 9.1 8.7 Phosphorus 2.3 L 2.5 Magnesium 1.6 1.8 Total Bilirubin AST ALT Alkaline Phosphatase Total Protein Albumin 4.6 D 4.3 Globulin Albumin/Globulin Ratio Lipase Beta-Hydroxybutyrate/Acetoacetate Ur Collection Type Urine Color Urine Clarity Urine pH Ur Specific [place] Urine Protein Urine Glucose (UA) Urine Ketones Urine Blood Urine Nitrite Urine Bilirubin Urine Urobilinogen (Auto) Ur Leukocyte Esterase Urine RBC Urine WBC Ur Squamous Epith Cells Urine Bacteria Hyaline Casts Ur Culture Indicated? Urine Opiates Screen Urine Fentanyl Screen Ur Barbiturates Screen U Amphetamin/Meth Scrn U Benzodiazepines Scrn U Cocaine Metab Screen U Marijuana (THC) Screen Urine Alcohol ABG Interpretation ABG results: 01/10/25 01/10/25 16:51 20:14 ABG pH 7.14 L* ABG pCO2 23 L ABG pO2 119 H ABG HCO3 8 L* ABG O2 Saturation 98 ABG Base Excess -19 L VBG pH 7.20 L VBG pCO2 17 L VBG pO2 102 H VBG Base Excess -19 L Quality Measures Quality Measures none Assessment & Plan Assessment Current Active Medications: Generic Name Dose Route Start Last Admin Trade Name Freq PRN Reason Stop Dose Admin Acetaminophen 1,000 mg 01/10/25 19:56 Acetaminophen 325 Mg Tablet PO 02/09/25 18:06 Q6H PRN Fever >99.9 Dextrose 25 ml 01/10/25 17:52 Dextrose 50%-Water Inj 50 Ml Syringe IV [id number] PRN Blood Sugar - Low Enoxaparin Sodium 40 mg 01/11/25 09:00 Enoxaparin Sod Inj 40 Mg/0.4 Ml Syringe [place] 01/25/25 08:59 QDAY JADA Glucagon 1 mg 01/10/25 18:09 Glucagon Inj 1 Mg Vial IM Q15MIN PRN BG <70, and no IV access Insulin Human Regular 100 unit in 100 mls @ 8.618 mls/hr 01/10/25 17:52 01/11/25 06:00 Myxredlin IV 02/09/25 17:51 0.05 unit/kg/hr .[id number] PRN 4.309 mls/hr PER PROTOCOL Titration Protocol 0.1 UNIT/KG/HR Potassium Chloride 10 meq in 100 mls @ 100 mls/hr 01/10/25 17:52 Kcl Ivpb IV 02/09/25 17:51 .Q1H PRN IF POTASSIUM LESS THAN 3.3 Magnesium Sulfate 2 gm in 50 mls @ 25 mls/hr 01/10/25 17:52 01/10/25 23:20 Magnesium Sulfate Ivpb IV 02/09/25 17:51 25 mls/hr .Q2H PRN Administration PER DKA PROTOCOL Dextrose/Lactated Ringer's 1,000 mls @ 250 mls/hr 01/10/25 17:52 D5-Lr IV 02/09/25 17:51 .Q4H PRN PER PROTOCOL Lactated Ringer's 1,000 mls @ 250 mls/hr 01/10/25 17:52 Lactated Ringers IV 01/11/25 17:51 .Q4H PRN PER PROTOCOL Potassium Chloride 20 meq/ 1,010 mls @ 250 mls/hr 01/10/25 17:52 01/11/25 00:59 Lactated Ringer's IV 02/09/25 17:51 250 mls/hr .Q4H3M PRN Administration K LEVEL 3.3 TO 5.3mM/L Potassium Chloride 40 meq/ 1,020 mls @ 250 mls/hr 01/10/25 17:52 Lactated Ringer's IV 02/09/25 17:51 .Q4H5M PRN K LEVEL < 3.3 mM/L Potassium Chloride 40 meq/ 1,020 mls @ 250 mls/hr 01/10/25 17:52 Dextrose/Lactated Ringer's IV 02/09/25 17:51 .Q4H5M PRN K LEVEL < 3.3mM/L Potassium Cl/Dextrose/Lact Ringer's 20 meq in 1,000 mls @ 250 mls/hr 01/10/25 17:52 01/11/25 03:23 Kcl 20 Meq/L In D5-Lr IV 02/09/25 17:51 250 mls/hr .Q4H PRN Administration K LEVEL 3.3 TO 5.3 mM/L Potassium Chloride 10 meq in 100 mls @ 50 mls/hr 01/10/25 17:52 Kcl Ivpb IV 02/09/25 17:51 PRN PRN K LEVEL 3.3 to 5.3 & BG > 200 Potassium Phosphate 15 mmol in 250 mls @ 62.5 mls/hr 01/10/25 17:52 Pot Phos 15 Mmol In Ns 250 Ml IV 02/09/25 17:51 PRN PRN Phosphate <= 1mg/dL Sodium Phosphate 15 mmol/ 255 mls @ 62.5 mls/hr 01/10/25 17:52 Sodium Chloride IV 02/09/25 17:51 .Q4H5M PRN Phosphate <= 1mg/dL and K> than 5.3 Magnesium Sulfate 2 gm in 50 mls @ 25 mls/hr 01/11/25 07:08 Magnesium Sulfate Ivpb IV 01/11/25 09:07 X1 ONE Ondansetron HCl 4 mg 01/10/25 18:07 Ondansetron Inj 2 Mg/Ml Inj 2 Ml IVP 02/09/25 18:06 Q6H PRN NAUSEA OR VOMITING Protocol Pantoprazole Sodium 40 mg 01/11/25 09:00 Pantoprazole Inj 40 Mg Vial IVP 02/10/25 08:59 QDAY JADA Sodium Bicarbonate 50 ml 01/10/25 17:52 Sodium Bicarb Inj 8.4% Syr 50 Ml Syringe IV 02/09/25 17:51 Q4HR PRN For ph <= to 7.0 Plan Mr Hernandez is a 29 year old male with PMH of Type 1 IDDM, who was admitted for acute onset nausea, vomiting and abdominal pain that started this morning around 9 am. Patient also had 2-3 episodes of diarrhea. In the ED, vitals showed borderline tachycardia HR 102-106 bpm, BP 120/80 and saturating 98% on room air. Fingerstick blood glucose noted to be > 400. Lab work showed leukocytosis WBC 20, hemoglobin 16.1 due to hemoconcentration, bicarb <10, KEILY Cr 1.4 (baseline 0.8) and BHB 5.2. A1c noted to be 12%. VBG showed pH 7.2, CO2 17. Chest x-ray unremarkable. Patient was admitted to the ICU for diabetic ketoacidosis in the setting of medication noncompliance. ENDO Type 1 dependent diabetes mellitus Dx: - PMH of Type 1 IDDM since age 23 - Home emds: Long acting insulin - glargine ? +Short acting Lispro +Sliding scale - VBG : pH 7.2, CO2 17 and Bicarb <10 - BHB 5.2 and AG 26 - Hb A1c = 12% - 01/10: Received 2L IVF bolus in ED. On maintenance IVF : LR @ 250 cc/h. Lab showed K 4.5 at the time of commencing insulin gtt - 01/11: On DKA protocol insulin drip 0.1U/kg. Will transition to SC insulin. Potassium supplementation in IVF until transition. Rx: - As needed Zofran every 6 hours - Renal panel q4H - Liquid diet --> carb consistent LOW - Bedside fingerstick glucose checks to continue - On insulin sliding scale with Accu-Checks - Start insulin Glargine 35U HS + insulin Lispro 10U TIDWM - Hypoglycemia protocol in place - Cycle Manager referral in place - Advisable to prescribe continuous glucose monitor on discharge NEURO No active problems. CVS No active problems. PULM No active problems. GI/Hep No active problems. RENAL No active problems. KEILY resolved: Cr 1.4 (baseline 0.8) -> 1 HEME/ONC Leukocytosis Hemoconcentration Dx: - WBC 20.1 -> 12.8 - hemoglobin 16.1 -> 13.6 - Likely in the setting of dehydration from DKA Rx: Anticipate correction with hydration and DKA management with insulin ID No active problems. ICU Health maintenance: Dispo: Admit to ICU for diabetic ketoacidosis --> Medical floors on 01/11/2025 Diet: Liquid diet --> carb consistent LOW DVT ppx: SCDs, ambulation encouraged GI ppx: Protonix 40mg qD IV lines: 2 pIV Central line: No Arterial line: No Code status: FULL CODE Plan of care discussed with multiple drum sander Dr Allison, Ankit Phillip MD PGY 2 This document was compiled using speech recognition software. Grammatical errors can be an occasional consequence of this system due to software limitations. Attending Provider Attestation/Addendum Patient seen and examined with the above resident, Ankit Phillip MD. I agree with the findings, assessment, and plan of care as documented except for any differences below. Patient with significant issues with compliance. No evidence of infection or ischemic precipitant. Patient has been transitioned back to subcutaneous regimen. Additional titration in next 24 hours prior to discharge. Transfer to medicine [place] for ongoing management. Total critical care time: I personally spent 30 minutes for review of physiologic parameters, directing plan of care, coordination of care with other specialist, and counseling patient at bedside. Patient required critical care services for DKA, SIRS without infection, and electrolyte derangements. He remained at significant risk for further morbidity and mortality warranting close monitoirng and care only available in the ICU.
[2025-01-11 07:40] LABS: Albumin, Serum 4.1 gm/dL (3.5-5.0); Anion Gap 11 (7-16); BUN/Creatinine Ratio 7 Ratio (12-20); Blood Urea Nitrogen 8 mg/dL (9-23); Calcium 8.8 mg/dL (8.3-10.6); Calcium (Corrected) 8.8 mg/dL (8.5-10.1); Chloride 109 mMol/L (98-107); Creatinine (Component) 1.1 mg/dL (0.6-1.3); Estimated Creatinine Clearance 104.2 mL/min (>60); Glucose 198 mg/dL (74-106); Magnesium 1.9 mg/dL (1.6-2.6); Osmolality,Calculated 289 (275-295); Phosphorous 2.3 mg/dL (2.4-5.1); Potassium 4.1 mMol/L (3.4-5.1); Sodium 143 mMol/L (136-145); eGFR > 60 See Note
[2025-01-11] MEDS: Magnesium Sulfate 2 GM Ivpb 2 GM/50 ML BAG IV (07:53)
[2025-01-11] MEDS: NAPH,KPH MBDB 1 PACKET (1.5 GM) PO (07:57)
[2025-01-11] MEDS: INSULIN GLARGINE (Lantus) 5 UNIT/0.05 ML (PER 5 UNITS) 25 UNIT SC (07:58)
[2025-01-11] MEDS: PANTOPRAZOLE INJ 40 MG VIAL IVP (08:05)
[2025-01-11] MEDS: INSULIN LISPRO (AdmeLOG) 1 UNIT/0.01 ML UNIT 10 UNIT SC ×3 (09:33→17:30)
--- NOTE | 2025-01-11 09:59 | PC.SS ---
HOOK AND EYE ATTACHER conducted bedside contact with the patient conduct initial assessment and to discuss discharge planning.? Patient confirmed demographic information.? Patient resides at home with mother, Danya Marroquin .? Patient is currently unemployed.? Patient does not utilize any form of DME to assist with ambulation.? Patient does not utilize home oxygen.? Patient describes the ability to complete ADL?s independently.? Patient identified mother, Danya Marroquin; as medical surrogate decision maker.? Patient is not aligned with PCP services.? Patient receptive to obtaining appointment at [facility].? Patient possesses a history of diabetes, insulin dependent.? Patient does not possess any specialty provider.? Plan is for the patient to return home at the time of discharge.? Family will provide transportation on behalf of the patient. ?No further discharge needs identified by the patient.? No further intervention required at this time, social media content manager will be available to address any further concerns.? Next of Kin: Danya Marroquin D/C Plan: Home
--- NOTE | 2025-01-11 11:02 | PC.SS ---
CNMT emailed [facility] staff to schedule outpatient appointment for patient. Response is pending.
--- NOTE | 2025-01-11 11:12 | PC.SS ---
Appointment at [facility] scheduled for 01-15-25 @ 1:[address] Duong. Appointment card provided to the patient. Bedside nurse updated.
[2025-01-11] MEDS: INSULIN LISPRO (AdmeLOG) 1 UNIT/0.01 ML UNIT SC ×2 (12:00→17:31)
--- NOTE | 2025-01-11 13:54 | ESPR_ITS ---
Documentation for date of: 01/11/25 Subjective Subjective Interval history: 29-year-old male with past medical history of type I IDDM, presented to ED with chief complaints of acute nausea, vomiting, abdominal pain, and episode of diarrhea. Patient stated that he missed a few doses of insulin in the last 24 to 84 hours. However he stated that he is usually compliant with insulin regimen. The patient was diagnosed with diabetic ketoacidosis secondary to medication noncompliance and was admitted to the ICU for management. During ICU stay patient condition significantly improved, patient was placed on DKA protocol, received adequate IVF along with insulin drip. No acute overnight event was noted. Anion gap was closed twice, patient had adequate urine output, mentation is at baseline, patient transition to subcu insulin along with her short acting 3 times daily, and transferred to floors for further management. Exam Vital Signs Temp Pulse Resp BP Pulse Ox O2 Del Method 98.0 F 95 16 118/79 98 Room Air 01/11/25 08:00 01/11/25 10:01/11/25 10:01/11/25 10:01/11/25 10:01/11/25 08:00 Narrative Exam GENERAL: no acute distress, AAO x3, well nourished. HEENT: Head AT/ NC. Mucous membranes moist. PERRL. NECK: Supple, no lymphadenopathy, no carotid bruits. CARDIOVASCULAR: RRR. Normal S1/S2, No m/r/g. No pitting edema of bilateral LEs. RESPIRATORY: CTAB. No wheezing, rhonchi, crackles. GASTROINTESTINAL: Abdomen soft, non tender no palpable masses. Bowel sounds present in all 4 quadrants. MUSCULOSKELETAL:? No cyanosis or edema, no visible joint swelling. NEUROLOGICAL: CN II-XII grossly intact. No focal deficits. Sensation intact, symmetric. PSYCHIATRIC: Awake and alert, not agitated, normal mood and affect. INTEGUMENTARY: No obvious rashes, no jaundice, normal turgor. Objective Labs 01/12/25 05:23 01/12/25 05:23 Labs: Laboratory Results - last 24 hr 01/10/25 01/10/25 01/10/25 16:51 20:14 22:00 WBC 20.1 H RBC 5.12 Hgb 16.1 H Hct 46.2 MCV 90 MCH 31.4 MCHC 34.8 RDW Std Deviation 41.7 Plt Count 330 Neut % (Auto) 83 H Lymph % (Auto) 9 L [place] % (Auto) 7 Eos % (Auto) 0 Baso % (Auto) 0 Neut # (Auto) 16.8 H Lymph # (Auto) 1.8 [place] # (Auto) 1.4 H Eos # (Auto) 0.1 Baso # (Auto) 0.1 Immature Gran # (Auto) 0.12 H Absolute Nucleated RBC 0.00 Immature Gran % 1 H Nucleated RBC % 0 Puncture Site Right Radial ABG pH 7.14 L* ABG pCO2 23 L ABG pO2 119 H ABG HCO3 8 L* ABG O2 Saturation 98 ABG Base Excess -19 L VBG pH 7.20 L VBG pCO2 17 L VBG pO2 102 H VBG O2 Sat (Jeovany) 98 H VBG Base Excess -19 L FiO2 21 Sodium 136 Potassium 4.5 Chloride 100 Carbon Dioxide < 10.0 L* Anion Gap 26 H BUN 13 Creatinine 1.4 H Estim Creat Clear Calc 81.8 eGFR > 60 BUN/Creatinine Ratio 9 L Glucose 459 H* Estimated Ave Glu mg/dL 298 H Hemoglobin A1c 12.0 H Calculated Osmolality 292 Calcium 10.0 Corrected Calcium 10.0 Phosphorus Magnesium Total Bilirubin 0.8 AST 12 ALT < 7 L Alkaline Phosphatase 73 Total Protein 7.7 Albumin 5.1 H Globulin 2.6 Albumin/Globulin Ratio 2.0 Lipase 24 Beta-Hydroxybutyrate/Acetoacetate 5.2 H Ur Collection Type Clean Catch Urine Color Colorless A Urine Clarity Clear Urine pH 5.0 Ur Specific [place] 1.016 Urine Protein Negative Urine Glucose (UA) 4+ A Urine Ketones 4+ A Urine Blood Negative Urine Nitrite Negative Urine Bilirubin Negative Urine Urobilinogen (Auto) Negative Ur Leukocyte Esterase Negative Urine RBC 0 Urine WBC 0 Ur Squamous Epith Cells < 1 Urine Bacteria None Hyaline Casts < 1 Ur Culture Indicated? Not Indicated Urine Opiates Screen Negative Urine Fentanyl Screen Negative Ur Barbiturates Screen Negative U Amphetamin/Meth Scrn Negative U Benzodiazepines Scrn Negative U Cocaine Metab Screen Negative U Marijuana (THC) Screen Negative Urine Alcohol Negative 01/10/25 01/11/25 01/11/25 22:15 02:23 06:00 WBC 12.8 H D RBC 4.38 L Hgb 13.6 D Hct 38.9 L MCV 89 MCH 31.1 MCHC 35.0 RDW Std Deviation 41.9 Plt Count 223 D Neut % (Auto) 79 Lymph % (Auto) 12 [place] % (Auto) 9 Eos % (Auto) 0 Baso % (Auto) 0 Neut # (Auto) 10.1 H Lymph # (Auto) 1.5 [place] # (Auto) 1.2 H Eos # (Auto) 0.0 Baso # (Auto) 0.0 Immature Gran # (Auto) 0.05 H Absolute Nucleated RBC 0.00 Immature Gran % 0 Nucleated RBC % 0 Puncture Site ABG pH ABG pCO2 ABG pO2 ABG HCO3 ABG O2 Saturation ABG Base Excess VBG pH VBG pCO2 VBG pO2 VBG O2 Sat (Jeovany) VBG Base Excess FiO2 Sodium 143 143 143 Potassium 4.3 3.9 4.1 Chloride 111 H 113 H 109 H Carbon Dioxide 15.1 L 19.4 L 23.0 Anion Gap 17 H 11 11 BUN 10 8 L 8 L Creatinine 1.2 1.1 1.1 Estim Creat Clear Calc 95.5 104.2 104.2 eGFR > 60 > 60 > 60 BUN/Creatinine Ratio 8 L 7 L 7 L Glucose 180 H D [address] Glu mg/dL Hemoglobin A1c Calculated Osmolality 288 285 289 Calcium 9.1 8.7 8.8 Corrected Calcium 9.1 8.7 8.8 Phosphorus 2.3 L 2.5 2.3 L Magnesium 1.6 1.8 1.9 Total Bilirubin AST ALT Alkaline Phosphatase Total Protein Albumin 4.6 D 4.3 4.1 Globulin Albumin/Globulin Ratio Lipase Beta-Hydroxybutyrate/Acetoacetate Ur Collection Type Urine Color Urine Clarity Urine pH Ur Specific [place] Urine Protein Urine Glucose (UA) Urine Ketones Urine Blood Urine Nitrite Urine Bilirubin Urine Urobilinogen (Auto) Ur Leukocyte Esterase Urine RBC Urine WBC Ur Squamous Epith Cells Urine Bacteria Hyaline Casts Ur Culture Indicated? Urine Opiates Screen Urine Fentanyl Screen Ur Barbiturates Screen U Amphetamin/Meth Scrn U Benzodiazepines Scrn U Cocaine Metab Screen U Marijuana (THC) Screen Urine Alcohol ABG Interpretation ABG results: 01/10/25 01/10/25 16:51 20:14 ABG pH 7.14 L* ABG pCO2 23 L ABG pO2 119 H ABG HCO3 8 L* ABG O2 Saturation 98 ABG Base Excess -19 L VBG pH 7.20 L VBG pCO2 17 L VBG pO2 102 H VBG Base Excess -19 L Quality Measures Quality Measures none Assessment & Plan Assessment Current Active Medications: Generic Name Dose Route Start Last Admin Trade Name Jaylan PRN Reason Stop Dose Admin Acetaminophen 1,000 mg 01/10/25 19:56 Acetaminophen 325 Mg Tablet PO 02/09/25 18:06 Q6H PRN Fever >99.9 Dextrose 25 ml 01/10/25 17:52 Dextrose 50%-Water Inj 50 Ml Syringe IV [id number] PRN Blood Sugar - Low Glucagon 1 mg 01/10/25 18:09 Glucagon Inj 1 Mg Vial IM Q15MIN PRN BG <70, and no IV access Magnesium Sulfate 2 gm in 50 mls @ 25 mls/hr 01/10/25 17:52 01/10/25 23:20 Magnesium Sulfate Ivpb IV 02/09/25 17:51 25 mls/hr .Q2H PRN Administration PER DKA PROTOCOL Insulin Glargine 10 unit 01/11/25 21:00 Insulin Glargine (Lantus) 5 Unit/0.05 Ml (Per 5 Units) [place] 01/11/25 21:01 X1 ONE Insulin Glargine 35 unit 01/12/25 21:00 Insulin Glargine (Lantus) 5 Unit/0.05 Ml (Per 5 Units) [place] 02/11/25 20:59 HS JADA Insulin Human Lispro 10 unit 01/11/25 08:00 01/11/25 11:59 Insulin Lispro (Admelog) 1 Unit/0.01 Ml Unit [place] 02/10/25 07:59 10 unit TIDWM [facility] Administration Insulin Human Lispro 0 unit 01/11/25 11:30 01/11/25 12:00 Insulin Lispro (Admelog) 1 Unit/0.01 Ml Unit [place] 02/10/25 11:29 4 unit AC [facility] Administration Protocol Ondansetron HCl 4 mg 01/10/25 18:07 Ondansetron Inj 2 Mg/Ml Inj 2 Ml IVP 02/09/25 18:06 Q6H PRN NAUSEA OR VOMITING Protocol Pantoprazole Sodium 40 mg 01/11/25 09:00 01/11/25 08:05 Pantoprazole Inj 40 Mg Vial IVP 02/10/25 08:59 40 mg QDAY JADA Administration Plan 29-year-old male with past medical history of insulin-dependent DM type I was admitted to ICU for DKA treatment and management. Patient successfully transition to subacute, and was transferred to floors. #DKA resolved #Type 1 insulin-dependent DM Patient has a past medical history of insulin-dependent diabetes since age of 23 At home patient takes long-acting insulin, unknown how much unit, along with a short acting) sliding scale In ICU patient completed DKA protocol and was transitioned to subcu insulin. - Continue Lantus 35 units at bedtime -Continue with lispro 10 units 3 times daily with meals - Patient is covered with insulin sliding scale - Hypoglycemia protocol is in place - Will continue close monitor, follow-up with the renal panel - Continue low carb consistent diet - Symptomatic manageme with p.o. hydration and Zofran as needed #Leukocytosis?improving #Hemoconcentration-improving Likely in the setting of DKA Disposition; telemetry Diet carb consistent low DVT prophylaxis SCDs GI PPI CODE STATUS full code Patient care was discussed with attending physician Dr. Misael Lee MD PGY-2 Attending Provider Attestation/Addendum I have examined the patient, reviewed labs and imaging findings, discussed the case with the resident(s), and reviewed entered orders. I agree with the plan of care as outlined in this note. Dr. Misael MD
[2025-01-11] MEDS: INSULIN GLARGINE (Lantus) 5 UNIT/0.05 ML (PER 5 UNITS) 10 UNIT SC (21:29)
--- NOTE | 2025-01-11 22:03 | PC.NURSE ---
pt in shower.
[2025-01-12] VITALS: PULSE 81
[2025-01-12] MEDS: INSULIN LISPRO (AdmeLOG) 1 UNIT/0.01 ML UNIT SC ×2 (00:35→07:39)
[2025-01-12 04:00] VITALS: BP 117/74; PULSE 84; PULSE 85; RESP 20; TEMP 36.2; O2SAT 97
[2025-01-12 05:51] LABS: Basophils % (Auto) 0 % (0-2.5); Eosinophils % (Auto) 0 % (0-10); Hematocrit 37.6 % (41.0-53.0); Hemoglobin 13.3 g/dL (13.5-16.0); Immature Granulocytes % (Auto) 0 % (0-0); Immature Granulocytes Auto 0.03 Thou/mm3 (0.00-0.00); Lymphocytes # (Auto) 1.5 Thou/mm3 (1.0-4.8); Lymphocytes % (Auto) 20 % (10-50); Mean Corpuscular HGB Conc 35.4 g/dl (31.0-37.0); Mean Corpuscular Hemoglobin 31.1 pg (25.0-35.0); Mean Corpuscular Volume 88 fL (80-100); Monocytes # (Auto) 0.6 Thou/mm3 (0.0-0.8); Monocytes % (Auto) 8 % (0-12); Neutrophils # (Auto) 5.4 Thou/mm3 (1.8-7.7); Neutrophils % (Auto) 71 % (37-80); Nucleated Red Blood Cell % 0 /100 WBC (0); Platelet Count 152 Thou/mm3 (140-440); RDW Standard Deviation 41.7 fL (35.1-43.9); Red Blood Count 4.27 Miln/mm3 (4.50-5.90); White Blood Count 7.6 Thou/mm3 (3.8-10.6)
[2025-01-12 05:58] VITALS: BMI 26.3
[2025-01-12 06:06] LABS: Albumin, Serum 4.2 gm/dL (3.5-5.0); Anion Gap 9 (7-16); BUN/Creatinine Ratio 14 Ratio (12-20); Blood Urea Nitrogen 11 mg/dL (9-23); Calcium 8.7 mg/dL (8.3-10.6); Calcium (Corrected) 8.7 mg/dL (8.5-10.1); Chloride 105 mMol/L (98-107); Creatinine (Component) 0.8 mg/dL (0.6-1.3); Estimated Creatinine Clearance 143.2 mL/min (>60); Glucose 238 mg/dL (74-106); Magnesium 1.8 mg/dL (1.6-2.6); Osmolality,Calculated 283 (275-295); Phosphorous 3.5 mg/dL (2.4-5.1); Potassium 3.6 mMol/L (3.4-5.1); Sodium 138 mMol/L (136-145); eGFR > 60 See Note
[2025-01-12] MEDS: INSULIN LISPRO (AdmeLOG) 1 UNIT/0.01 ML UNIT 10 UNIT SC (07:40)
[2025-01-12 08:00] VITALS: BP 118/77; PULSE 79
[2025-01-12] MEDS: PANTOPRAZOLE INJ 40 MG VIAL IVP (08:13)
[2025-01-12] MEDS: INSULIN GLARGINE (Lantus) 5 UNIT/0.05 ML (PER 5 UNITS) 35 UNIT SC (09:29)
--- NOTE | 2025-01-12 10:37 | PD.RESDS ---
Planned Discharge Date 01/12/25 DS: Providers Provider Date of admission: 01/10/25 18:06 Primary care physician: Physician No Primary/Family Admitting Provider: Az Allison MD Attending Provider on Admission: Luis Douglas MD Consults: 01/10/25 17:54 Referral Registered Dietitian Routine Comment: Attending Provider on DC: Prema Lee MD Discharging Provider: Prema Lee MD DS: Diagnosis Problem List Completed Was Problem List Reviewed/Reconciled?: Yes Hospital Course Hospital Course Hospital course: 29-year-old male with past medical history of type I IDDM, presents to ED with chief complaints of acute nausea, vomiting, abdominal pain and diarrhea. Per patient he missed a few doses of insulin in the last 24 to 48 hours. However he stated that he is usually compliant with insulin regimen. In ED patient was diagnosed with DKA secondary due to medication noncompliance that was admitted to ICU for DKA management. During ICU stay patient condition significantly improved, patient completed DKA protocol, and was transitioned to subcutaneous insulin. Patient started on diet, tolerated well, blood sugar was closely monitored along with a renal panel. Patient also stated that the insulin sliding scale has been challenging for him to follow-up and it involves multiple injection. Patient stated that he is following warehouse general laborer in [place] and has upcoming appointment. Plan is to do insulin pump it may be more suitable option for him. Patient is unsure how much insulin he has been getting at home, he is a poor historian. During hospital stay patient required around 77 units of subcu insulin while he was on a low-carb diet, per insulin requirement patient was placed on 40 units of Tresiba daily along with the 10 units of lispro 3 times daily with meals. Insulin sliding scale was held, patient was instructed about current new regimen, was advised close monitor blood sugar at home, and close follow-up with PCP/endocrinology in 1 to 2 weeks after discharge, repeat CBC/CMP in 1 week All questions and concerns were addressed. Patient gave verbal understanding. #DKA resolved #Type I IDDM Patient care was discussed with attending physician Dr. Misael Lee MD PGY-2 Time Spent with Patient Time attestation: Total time spent providing and/or coordinating discharge services: Time spent: Greater than 30 minutes Exam Vital Signs Temp Pulse Resp BP Pulse Ox O2 Del Method 97.1 F 84 20 118/77 97 Room Air 01/12/25 04:00 01/12/25 04:00 01/12/25 04:00 01/12/25 08:00 01/12/25 04:00 01/12/25 04:00 Narrative Exam GENERAL: no acute distress, AAO x3, well nourished. HEENT: Head AT/ NC. Mucous membranes moist. PERRL. NECK: Supple, no lymphadenopathy, no carotid bruits. CARDIOVASCULAR: RRR. Normal S1/S2, No m/r/g. No pitting edema of bilateral LEs. RESPIRATORY: CTAB. No wheezing, rhonchi, crackles. GASTROINTESTINAL: Abdomen soft, non tender no palpable masses. Bowel sounds present in all 4 quadrants. MUSCULOSKELETAL:? No cyanosis or edema, no visible joint swelling. NEUROLOGICAL: CN II-XII grossly intact. No focal deficits. Sensation intact, symmetric. PSYCHIATRIC: Awake and alert, not agitated, normal mood and affect. INTEGUMENTARY: No obvious rashes, no jaundice, normal turgor. Discharge Plan Plan Patient Disposition: HOME (Self Care) Prescriptions/Referrals Prescriptions/Med Rec: New insulin lispro 100 unit/mL insulin pen 10 unit subcut TIDWMEAL Qty: 15 0RF insulin degludec [Tresiba U-100 Insulin] 100 unit/mL solution 40 unit subcut QDAY 14 Days Qty: 5.6 0RF Held insulin lispro [Humalog Adán KwikPen U-100] 100 unit/mL insulin pen, half-unit See Protocol SUBCUT ACHS Hold Instructions: Resume on 01/26/25. follow up with your doctor before starting. close monitor blood sugar Protocol: Insulin Corrective High-Dose Regimen Condition: Fingerstick Blood Glucose Dose/Route: Insulin Units Condition: 141-180 mg/dl Dose/Route: 6 units/SQ Condition: 181-220 mg/dl Dose/Route: 8 units/SQ Condition: 221-260 mg/dl Dose/Route: 10 units/SQ Condition: 261-300 mg/dl Dose/Route: 12 units/SQ Condition: 301-350 mg/dl Dose/Route: 14 units/SQ Condition: 351-400 mg/dl Dose/Route: 16 units/SQ Condition: greater than 400 mg/dl Dose/Route: 18 units/SQ Patient Comments: INJECT 0.5 UNITS PER 8GMS UNDER THE SKIN DIRECTED MAX 100 UNITS PER DAY Referrals: No Primary/Family,Physician [Primary Care Provider] - Patient/Caregiver Discharge Instructions Other Discharge Activity Instructions:: Insulin Instructions and Follow-Up Plan: Begin taking Tresiba (long-acting insulin): 40 units every morning. You are also prescribed insulin lispro (short-acting): 10 units subcutaneously three times daily with meals. The insulin sliding scale has been held for now, as it appears challenging for you to follow and involves multiple injections. Please follow up with your primary care physician and warehouse general laborer as planned, especially since you mentioned you have an upcoming appointment in [place]. An insulin pump may be a suitable option in the future. It is essential to closely monitor your blood sugar levels. If this current insulin regimen does not seem to be working, seek immediate medical attention. If your CGM monitor shows that your blood sugar is trending low, hold the next insulin dose to prevent hypoglycemia. Staying compliant with your insulin regimen is very important. Missing doses or poor blood sugar control can lead to DKA and result in another hospital admission. Follow-up outpatient with Primary Care Provider in 1 to 2 weeks after discharge Return to ED anytime symptoms worsens or you experience similar symptoms as this time Education Materials: CGM, Diabetes Exercise Plan Print Language: Ukrainian Stand Alone Forms: Stephanie Award Info., Patient Portal Info Letter Discharge Order Discharge Orders: Discharge (Routine); Ordered 01/12/25 Ordered By: Prema Lee Quality Discharge Quality Measures VTE prophylaxis Attestestation MD Attestation I have examined the patient, reviewed labs and imaging findings, discussed the case with the resident(s), and reviewed entered orders. I agree with the plan of care as outlined in this note. Time Spent: [address] Misael MD
[2025-01-12 12:00] VITALS: BP 120/89; PULSE 74; RESP 18; TEMP 36.2; O2SAT 96
== END 2025-01-12 11:30 | disposition home or self-care (01) | DRG 420 ==
LOC: SERX 17:06 → SERHOLD 01-11 06:03 → S2SX 01-11 06:03 → S3SX 01-11 21:41
PROVIDERS: Nurse Practitioner Family; Nurse Practitioner Primary Care; Student in an Organized Health Care Education/Training Program; Admitting Provider Internal Medicine Critical Care Medicine; Emergency Provider Emergency Medicine; Visit Provider Student in an Organized Health Care Education/Training Program
DX: E10.10 Type 1 diabetes mellitus with ketoacidosis without coma (principal); N17.9 Acute kidney failure, unspecified; D72.829 Elevated white blood cell count, unspecified; Z91.148 Patient's other noncompliance with medication regimen for other reason; R65.10 Systemic inflammatory response syndrome (SIRS) of non-infectious origin without acute organ dysfunction; T38.3X6A Underdosing of insulin and oral hypoglycemic [antidiabetic] drugs, initial encounter
CPT/HCPCS: 36415; 36600; 71045; 80053; 80069; 80307; 80320; 81001; 82010; 82803; 83036; 83605; 83690; 83735; 84100; 85025; 87040; 87081; 93005; 93225; 96374; 99291; J1815; J2405; J2470; J2765; J3475; J3480; J7030; J7120; A9270; G0480